=== PATIENT | female | born 1970 | race Caucasian/White ===

== ENCOUNTER → 2017-08-17 13:44 | Outpatient (CLI) | payer MEDICAID ==
[2013-09-01 08:15] VITALS: BMI 29.3
[~2017-08-17 13:44] MED LIST: HYDROCHLOROTHIA50 MG PO; HYDROCODONE-APA1 TAB PO
== END | disposition home or self-care (01) ==
LOC: D.MRI 13:44
DX: M25.511 Pain in right shoulder (principal)

== ENCOUNTER 2019-07-09 19:09 | Inpatient (IN) | payer MEDICAID ==
[~2019-07-09] VITALS: Ht 157.5 cm; Wt 68.2 kg
[2019-07-09] MEDS ORDERED: ADIPEX-P37.5 M1 PO (19:14)
[2019-07-09 19:36] LABS: BASOPHILS 0.2 % (0-2); EOSINOPHILS 1.2 % (0-7); HEMOGLOBIN 12.7 g/dL (12-16); IMMATURE GRANULOCYTES 0.2 % (0-5); LYMPHOCYTES 32.4 % (15-50); MCH 30.2 pg (26.0-34.0); MCHC 33.4 g/dL (31.0-37.0); MCV 90.3 fL (80.0-100.0); MEAN PLATELET VOLUME 9.8 fL (7.4-10.4); MONOCYTES 10.2 % (2-11); NEUTROPHILS 55.8 % (40-80); RBC 4.21 10x6/uL (4.00-5.40); RDW 12.9 % (11.5-14.5); WBC 4.1 10x3/uL (4.8-10.8)
[2019-07-09 19:37] LABS: PLATELET COUNT 172 10x3/uL (130-400)
[2019-07-09 19:44] LABS: APTT 30.3 SECONDS (22.8-39.4); INR 0.88 (0.85-1.17); PROTIME 11.9 SECONDS (11.6-15.0)
[2019-07-09 19:45] LABS: CALC OSMOLALITY 275 mosm/kg (275-300); CALCIUM 8.9 mg/dL (8.5-10.1); CARBON DIOXIDE 27.4 mmol/L (21.0-32.0); CHLORIDE - SERUM 102 mmol/L (98-107); CREATININE - SERUM 0.8 mg/dL (0.6-1.3); GLUCOSE 88 mg/dL (74-106); POTASSIUM - SERUM 3.3 mmol/L (3.5-5.1); SODIUM 138 mmol/L (136-145); UREA NITROGEN 15 mg/dL (7-18); eGFR NON AFRICAN AMERICAN 82 mL/min (90-120)
[2019-07-09 20:00] VITALS: BP 98/52
[2019-07-09 20:01] LABS: ALKALINE PHOSPHATASE 82 U/L (30-120); ALT (SGPT) 40 U/L (10-68); BILIRUBIN - TOTAL 0.52 mg/dL (0.2-1.3); CKMB 1.2 U/L (0.0-3.6); CREATINE KINASE 68 UL (21-215); MAGNESIUM - SERUM 1.7 mg/dL (1.8-2.4); PROTEIN - SERUM 7.4 g/dL (6.4-8.2)
[2019-07-09 21:31] VITALS: BP 110/68
[2019-07-09] MEDS ORDERED: TYLENOL #4 W/CO1 TAB PO (21:50)
--- NOTE | 2019-07-09 22:01 | NUR ---
RECEIVED FROM ER, PT IS A&OX4, MEDS AND HISTORY COMPLETE, PLACED ON YYPYSBSO-PY-04, VITALS-98.7, P-92, BP-110/68, R-18, -, PROVIDED A SANDWICH AND DRINK, BED IS LOW, SRX2, CALL LIGHT IN REACH, WILL CONTINUE PLAN OF CARE
[2019-07-09 23:28] VITALS: BP 110/68; BMI 27.5
--- NOTE | 2019-07-09 23:37 | NUR ---
ADMISSION ASSESSMENT COMPLETED. PT RESTING IN BED. NO DISTRESS. SR PER TELEMETRY. NO REPORTED CHEST PAIN. CPOC.
[2019-07-10 00:01] VITALS: BP 100/47
[2019-07-10 01:00] LABS: CKMB 1.1 U/L (0.0-3.6); CREATINE KINASE 54 UL (21-215); TROPONIN-I 0.021 ng/mL (0.000-0.060)
[2019-07-10 06:26] LABS: CKMB 0.9 U/L (0.0-3.6); CREATINE KINASE 42 UL (21-215); TROPONIN-I 0.022 ng/mL (0.000-0.060)
[2019-07-10 08:00] VITALS: BP 101/67
[2019-07-10 12:54] VITALS: Ht 157.5 cm; Wt 68.2 kg
[2019-07-10 14:06] VITALS: BP 122/76
[2019-07-10 17:56] LABS: UDS - AMPHET NEGATIVE QUAL (NEGATIVE); UDS - BARB NEGATIVE QUAL (NEGATIVE); UDS - BENZO NEGATIVE QUAL (NEGATIVE); UDS - COCAINE NEGATIVE QUAL (NEGATIVE); UDS - OPIATE NEGATIVE QUAL (NEGATIVE); UDS - PCP NEGATIVE QUAL (NEGATIVE); UDS - THC NEGATIVE QUAL (NEGATIVE)
[2019-07-10 18:00] LABS: BILIRUBIN NEGATIVE (NEGATIVE); GLUCOSE NEGATIVE (NEGATIVE); KETONE NEGATIVE (NEGATIVE); NITRITE POSITIVE (NEGATIVE); SPECIFIC GRAVITY 1.015 (1.005-1.020); UROBILINOGEN NORMAL (NORMAL); WHITE CELLS - URINE 0-5 /hpf (NEGATIVE)
[2019-07-10 18:01] LABS: BACTERIA MANY /hpf (NEGATIVE); EPITHELIAL CELLS OCC /hpf (0-5); RED CELLS - URINE NONE SEEN /hpf (0-5)
--- NOTE | 2019-07-10 19:20 | NUR ---
RECEIVED REPORT, WILL ASSUME CARE OF PT, ASKING IF PAIN MEDS HAD BEED ORDER, SPOKE WITH KAREN ROSENBAUM, WAS TOLD I COULD ORDER PT PAIN MEDS, ASKING FOR SNACK, PROVIDED, BED IS LOW, SRX2, CALL LIGHT IN REACH, WILL CONTINUE PLAN OF CARE
[2019-07-10 20:00] VITALS: BP 111/66
[2019-07-11] VITALS: BP 110/62
[2019-07-11 04:00] VITALS: BP 100/60
--- NOTE | 2019-07-11 05:53 | NUR ---
EMT BASIC ASSESSMENT HAS BEEN COMPLETED.
[2019-07-11 05:59] LABS: BASOPHILS 0.3 % (0-2); EOSINOPHILS 1.4 % (0-7); HEMATOCRIT 35.4 % (36.0-48.0); HEMOGLOBIN 11.3 g/dL (12-16); LYMPHOCYTES 35.3 % (15-50); MCH 29.4 pg (26.0-34.0); MCHC 31.9 g/dL (31.0-37.0); MCV 92.2 fL (80.0-100.0); MEAN PLATELET VOLUME 10.2 fL (7.4-10.4); MONOCYTES 10.1 % (2-11); NEUTROPHILS 52.9 % (40-80); PLATELET COUNT 150 10x3/uL (130-400); RBC 3.84 10x6/uL (4.00-5.40); WBC 3.5 10x3/uL (4.8-10.8)
[2019-07-11 06:08] LABS: CALC OSMOLALITY 277 mosm/kg (275-300); CALCIUM 8.1 mg/dL (8.5-10.1); CARBON DIOXIDE 25.9 mmol/L (21.0-32.0); CHLORIDE - SERUM 106 mmol/L (98-107); CREATININE - SERUM 0.7 mg/dL (0.6-1.3); GLUCOSE 99 mg/dL (74-106); POTASSIUM - SERUM 3.7 mmol/L (3.5-5.1); SODIUM 140 mmol/L (136-145); eGFR NON AFRICAN AMERICAN > 90 mL/min (90-120)
[2019-07-11 06:11] LABS: UREA NITROGEN 10 mg/dL (7-18)
--- NOTE | 2019-07-11 07:20 | NUR ---
RECIEVE REPORT. ALERT AND ORIENTED X4. RESTING IN BED. SINUS RYTHM ON TELEMETRY. DENIES ANY NEEDS AT THIS TIME. CONTINUE PLAN OF CARE AND SAFETY PRECAUTIONS.
[2019-07-11 10:14] VITALS: BP 108/62
[2019-07-11 12:00] VITALS: BP 96/53
[2019-07-11 17:19] VITALS: BP 118/67
--- NOTE | 2019-07-11 19:15 | NUR ---
RECEIVED REPORT WILL ASSUME CARE OF PT, DENIES ANY NEEDS AT THIS TIME, BED IS LOW, SRX2, CALL LIGHT IN REACH, WILL CONTINUE PLAN OF CARE
[2019-07-11 20:00] VITALS: BP 109/62
[2019-07-12 01:12] VITALS: BP 116/73
--- NOTE | 2019-07-12 03:59 | NUR ---
I have reviewed this patient and I concur with the Shift Assessment completed by the Licensed Practical Nurse today this shift.
[2019-07-12 04:05] VITALS: BP 116/73
[2019-07-12 05:51] LABS: BASOPHILS 0.2 % (0-2); EOSINOPHILS 1.1 % (0-7); HEMOGLOBIN 11.9 g/dL (12-16); IMMATURE GRANULOCYTES 0.2 % (0-5); LYMPHOCYTES 24.3 % (15-50); MCH 30.1 pg (26.0-34.0); MCHC 33.1 g/dL (31.0-37.0); MCV 90.9 fL (80.0-100.0); MEAN PLATELET VOLUME 9.9 fL (7.4-10.4); MONOCYTES 10.5 % (2-11); NEUTROPHILS 63.7 % (40-80); PLATELET COUNT 161 10x3/uL (130-400); RBC 3.96 10x6/uL (4.00-5.40); RDW 12.7 % (11.5-14.5)
[2019-07-12 05:57] LABS: WBC 4.6 10x3/uL (4.8-10.8)
[2019-07-12 06:22] LABS: ANION GAP 11.5 mmol/L (8-16); CALCIUM 8.9 mg/dL (8.5-10.1); CARBON DIOXIDE 25.5 mmol/L (21.0-32.0)
[2019-07-12 06:35] LABS: CREATININE - SERUM 0.9 mg/dL (0.6-1.3)
[2019-07-12 07:53] VITALS: BP 118/76
[2019-07-12] MEDS ORDERED: FLORAJEN3 CAPS460 MG PO (09:24)
[2019-07-12] MEDS ORDERED: ASPIRIN81 MG PO (09:24)
[2019-07-12] MEDS ORDERED: PROTONIX40 MG PO (09:25)
[2019-07-12] MEDS ORDERED: MACROBID100 MG PO (09:25)
--- NOTE | 2019-07-12 10:28 | MORECARE ---
CASE MANAGEMENT DISCHARGE SUMMARY PATIENT: VEGA SILVA UNIT: [id number] ADM DATE: 07/10/19 AGE: 48 : 74 SEX: F ROOM/BED: D.7793 AUTHOR: BRIANDOC PHYSICIAN: REFERRING PHYSICIAN: KWAME WHEELER MD DATE OF SERVICE: 07/12/19 Discharge Plan Patient Name: VEGA SILVA Facility: [facility]:[place] : 1970 Planned Disposition: Home Anticipated Discharge Date: 07/12/19 Discharge Date: Expected LOS: 2 Initial Reviewer: [email or web address] Initial Review Date: 07/12/2019 Generated: 07/12/19 11:27 am Comments DCP- Discharge Planning Updated by [email or web address]: Magalis Raygoza on 07/12/19 9:[address] Patient Name: VEGA SILVA Admission Status: ER Accout number: [id number] Admission Date: 07-10-2019 : 1970 Admission Diagnosis: Attending: KWAME WHEELER Current LOS: 2 Anticipated DC Date: 07-12-2019 Planned Disposition: Home Primary Insurance: MED[place]ID [place] Discharge Planning Comments: CM met with patient to complete initial dc planning assessment. CM educated patient on the CM role and verbal consent given by patient to complete assessment. Patient lives at home with her spouse. At discharge patient plans to return and feels this is a safe discharge. CM discussed availability of home health, rehab services, and medical equipment. Patient denied known discharge needs at this time. CM will continue to follow and will assist as needed with dc plans/needs. Residential Framing Carpenter: Magalis Raygoza DCPIA - Discharge Planning Initial Assessment Updated by [email or web address]: Magalis Raygoza on 07/12/19 10:27 am * Is the patient Alert and Oriented? Yes * PCP Dr. Méndez * Pharmacy [place] * Preadmission Environment Home with Family * ADLs Independent * Equipment None * List name and contact numbers for known caregivers / representatives who currently or will assist patient after discharge: [facility] - [phone] * Verbal permission to speak to the caregivers and representatives has been obtained from the patient. Yes * Community resources currently utilized None * Additional services required to return to the preadmission environment? No * Can the patient safely return to the preadmission environment? Yes * Has this patient been hospitalized within the prior 30 days at any hospital? No Patient Name: VEGA SILVA Page [id number] at 1028 All edits/amendments must be made on the electronic document DICTATION DATE: 07/12/19 1027 NIGHT MANAGER: DALI 07/12/19 1027 RPT#: [id number] DC DATE: STATUS: ADM IN [facility] [address] [place] [address] END OF REPORT
--- NOTE | 2019-07-12 10:54 | NUR ---
IV AND TELEMETRY DCD. DC PLANS GIVEN. UNDERSTANDING VOICED. ESCORTED TO CAR.
--- NOTE | 2019-07-14 07:28 | MORECARE ---
CASE MANAGEMENT DISCHARGE SUMMARY PATIENT: VEGA SILVA UNIT: [id number] ADM DATE: 07/10/19 AGE: 48 : 74 SEX: F ROOM/BED: D.9804 AUTHOR: BRIANDOC PHYSICIAN: REFERRING PHYSICIAN: KWAME WHEELER MD DATE OF SERVICE: 07/14/19 Discharge Plan Patient Name: VEGA SILVA Facility: [facility]:[place] : 1970 Planned Disposition: Home Anticipated Discharge Date: 07/12/19 Discharge Date: 07/12/2019 Expected LOS: 2 Initial Reviewer: [email or web address] Initial Review Date: 07/12/2019 Generated: 07/14/19 8:28 am Comments DCP- Discharge Planning Updated by [email or web address]: Magalis Raygoza on 07/12/19 9:[address] Patient Name: VEGA SILVA Admission Status: ER Accout number: [id number] Admission Date: 07-10-2019 : 1970 Admission Diagnosis: Attending: KWAME WHEELER Current LOS: 2 Anticipated DC Date: 07-12-2019 Planned Disposition: Home Primary Insurance: MED[place]ID [place] Discharge Planning Comments: CM met with patient to complete initial dc planning assessment. CM educated patient on the CM role and verbal consent given by patient to complete assessment. Patient lives at home with her spouse. At discharge patient plans to return and feels this is a safe discharge. CM discussed availability of home health, rehab services, and medical equipment. Patient denied known discharge needs at this time. CM will continue to follow and will assist as needed with dc plans/needs. Forestry Professor: Magalis Raygoza DCPIA - Discharge Planning Initial Assessment Updated by [email or web address]: Magalis Raygoza on 07/12/19 10:27 am * Is the patient Alert and Oriented? Yes * PCP Dr. Méndez * Pharmacy [place] * Preadmission Environment Home with Family * ADLs Independent * Equipment None * List name and contact numbers for known caregivers / representatives who currently or will assist patient after discharge: [facility] - [phone] * Verbal permission to speak to the caregivers and representatives has been obtained from the patient. Yes * Community resources currently utilized None * Additional services required to return to the preadmission environment? No * Can the patient safely return to the preadmission environment? Yes * Has this patient been hospitalized within the prior 30 days at any hospital? No Last DP export: 07/12/19 9:28 a Patient Name: VEGA SILVA Page [id number] at 0728 All edits/amendments must be made on the electronic document DICTATION DATE: 07/14/19727 MBA INTERN: DALI 07/14/19727 RPT#: [id number] DC DATE:07/12/19 STATUS: DIS IN [facility] [address] [place] [address] END OF REPORT
== END 2019-07-12 10:55 | disposition home or self-care (01) | DRG 313 ==
LOC: D.ER 19:09 → D.M2 20:33 → OBSVTIME 07-10 17:00 → D.M2 07-10 18:15 → D.SDCHOLD 07-12 10:30 → D.M2 07-12 10:33
PROVIDERS: Emergency Medicine; ADMIT Internal Medicine Nephrology; ATTEND Internal Medicine Nephrology
DX: R07.9 Chest pain, unspecified (principal); N39.0 Urinary tract infection, site not specified; E87.6 Hypokalemia; E83.42 Hypomagnesemia; F41.9 Anxiety disorder, unspecified; G89.29 Other chronic pain; M54.9 Dorsalgia, unspecified; I10 Essential (primary) hypertension